=== PATIENT | male | born 1950 | race Caucasian/White ===

== ENCOUNTER 2019-03-21 09:59 | Day surgery (SDC) | payer MEDICARE ==
[~2019-03-21 09:59] MED LIST: CHONDR SU A NA/HYALUR INTRAOC KIT (SURGICARE) ONE; DORZOLAMIDE HCL 2%/TIMOLOL MALEAT 0.5% OPH SOLN 10 ML OD PRN; EPINEPHRINE INJ/PF 1 MG/1 ML AMPULE ONE; KETOROLAC TROMETHAMINE 0.45% 4 DROP/0.4 ML DROPERETTE OD PRN; LIDOCAINE 1%/PHENYLEPHRINE 1.5% 1 ML VIAL ONE
[2019-03-21] MEDS ORDERED: ONDANSETRON HCL INJ/PF 4 MG/2 ML SDV ONE (10:51)
[2019-03-21] MEDS ORDERED: FENTANYL CITRATE INJ/PF 100 MCG/2 ML AMPUL ONE ×2 (10:52→11:22)
[2019-03-21] MEDS ORDERED: MIDAZOLAM 2 MG/2 ML INJ ONE ×2 (10:52→11:22)
[2019-03-21] MEDS: TETRACAINE HCL 0.5% OPH SOLN 4 ML OD PRN ×4 (11:13→11:37)
[2019-03-21] MEDS: CYCLOPENTOLATE 0.2%/PHENYLEPHRINE 1% OPH SOLN 2 ML OD PRN ×4 (11:14→11:33)
[2019-03-21] MEDS: TROPICAMIDE 1% OPH SOLN 15 ML OD PRN ×4 (11:14→11:33)
[2019-03-21] MEDS: BESIFLOXACIN HCL 0.6% OPH SUSP 5 ML BOTTLE OD PRN ×3 (11:14→12:01)
--- NOTE | 2019-03-22 07:37 | Operative Report ---
Operative Report-[facility] Operative Report: DATE OF SURGERY: 03/21/2019 PREOPERATIVE DIAGNOSIS: Cataract, right eye, Pupil Miosis POSTOPERATIVE DIAGNOSIS: Cataract, right eye, Pupil miosis OPERATION: Complex Cataract extraction with insertion of an IOL of the right eye and use of a maluygan ring due to pupil dilation of less than 4mm. Intraocular Lens Model: [21.5 sn60wf] Reason for surgery was difficulty seeing the television SURGEON: Kirby Fletcher MD ANESTHESIA: Topical PROCEDURE: After obtaining appropriate consent, the patient's right eye was prepped and draped in a sterile fashion as well as the surgeon in the sterile manner and cataract surgery was started. First a paracentesis blade was used to make a side-port incision. Viscoelastic was used to inflate the anterior chamber. Next a 2.4 mm incision was made with a 2.4 mm blade, clear corneal temporarily. A continuous capsulorrhexis was made using a cystotome and Utrata forceps. Following this hydrodissection was carried out to make the lens fully loose and mobile and it was rotated freely. Following this, a divide and conquer technique was used to phacoemulsify the lens. The remaining cortex was removed with an irrigation/aspiration. Provisc was instilled into the capsular bag to inflate the bag. The intraocular lens was placed. The remaining viscoelastic material was removed with irrigation/aspiration. Following this, the incision was found to be watertight. Prior to making the capsulorhexis a maluygan ring was inserted due to poor pupillary dilation. This was removed at the end of the case. Besivance and Cosopt was instilled into the eye and a protective shield was placed over the eye. The patient was returned to the postoperative recovery in a stable condition.
== END 2019-03-21 12:42 | disposition home or self-care (01) ==
LOC: SC 09:59
PROVIDERS: ATTEND Internal Medicine
DX: H25.813 Combined forms of age-related cataract, bilateral (principal); H57.03 Miosis; H04.123 Dry eye syndrome of bilateral lacrimal glands; H43.813 Vitreous degeneration, bilateral; E78.00 Pure hypercholesterolemia, unspecified; E03.9 Hypothyroidism, unspecified; F17.210 Nicotine dependence, cigarettes, uncomplicated
CPT/HCPCS: 66982; 00142; V2632; J2250; J3490 ×2; A9270; J0171; J3010; J2370; 142; J2405

== ENCOUNTER 2019-04-10 09:40 | Day surgery (SDC) | payer MEDICARE ==
[~2019-04-10 09:40] MED LIST changes: -DORZOLAMIDE HCL 2%/TIMOLOL MALEAT 0.5% OPH SOLN 10 ML OD PRN; -KETOROLAC TROMETHAMINE 0.45% 4 DROP/0.4 ML DROPERETTE OD PRN; +KETOROLAC TROMETHAMINE 0.45% 4 DROP/0.4 ML DROPERETTE OS PRN
[2019-04-10] MEDS ORDERED: ONDANSETRON HCL INJ/PF 4 MG/2 ML SDV ONE (09:54)
[2019-04-10] MEDS ORDERED: MIDAZOLAM 2 MG/2 ML INJ ONE ×2 (09:54→10:51)
[2019-04-10] MEDS ORDERED: FENTANYL CITRATE INJ/PF 100 MCG/2 ML AMPUL ONE (09:54)
[2019-04-10] MEDS: TETRACAINE HCL 0.5% OPH SOLN 4 ML OS PRN ×3 (10:27→10:51)
[2019-04-10] MEDS: BESIFLOXACIN HCL 0.6% OPH SUSP 5 ML BOTTLE OS PRN ×4 (10:28→11:15)
[2019-04-10] MEDS: TROPICAMIDE 1% OPH SOLN 15 ML OS PRN ×3 (10:28→10:49)
[2019-04-10] MEDS: CYCLOPENTOLATE 0.2%/PHENYLEPHRINE 1% OPH SOLN 2 ML OS PRN ×3 (10:28→10:49)
[2019-04-10] MEDS: DORZOLAMIDE HCL 2%/TIMOLOL MALEAT 0.5% OPH SOLN 10 ML OS PRN ×2 (11:15)
--- NOTE | 2019-04-10 11:42 | Operative Report ---
Operative Report-[facility] Operative Report: DATE OF SURGERY: 04/10/2019 PREOPERATIVE DIAGNOSIS: Cataracts, left eye POSTOPERATIVE DIAGNOSIS: Cataract, left eye OPERATION: Cataract extraction with insertion of an IOL of the left eye. Intraocular Lens Model: [21.2xc90zm] Reason for surgery was difficulty with glare secondary to headlights at night SURGEON: Kirby Fletcher MD ANESTHESIA: Topical PROCEDURE: After obtaining appropriate consent, the patient's left eye was prepped and draped in a sterile fashion as well as the surgeon in the sterile manner and cataract surgery was started. First a paracentesis blade was used to make a side-port incision. Viscoelastic was used to inflate the anterior chamber. Next a 2.4 mm incision was made with a 2.4 mm blade, clear corneal temporarily. A continuous capsulorrhexis was made using a cystotome and Utrata forceps. Following this hydrodissection was carried out to make the lens fully loose and mobile and it was rotated 90 degrees. Following this, a divide and conquer technique was used to phacoemulsify the lens. The remaining cortex was removed with an irrigation/aspiration. Provisc was instilled into the capsular bag to inflate the bag.The intraocular lens was placed. The remaining viscoelastic material was removed with irrigation/aspiration. Following this, the incision was found to be watertight. Besivance and Cosopt was instilled into the eye and a protective shield was placed over the eye. The patient was returned to the postoperative recovery in a stable condition.
== END 2019-04-10 12:03 | disposition home or self-care (01) ==
LOC: SC 09:40
PROVIDERS: ATTEND Internal Medicine
DX: H25.812 Combined forms of age-related cataract, left eye (principal); H57.03 Miosis; Z96.1 Presence of intraocular lens; J44.9 Chronic obstructive pulmonary disease, unspecified; E07.9 Disorder of thyroid, unspecified; F17.210 Nicotine dependence, cigarettes, uncomplicated; Z79.899 Other long term (current) drug therapy
CPT/HCPCS: 66984; V2632; J2250; J3490 ×2; A9270; J0171; J3010; J2405; J2370; 142